=== PATIENT | male | born 1960 | race Two or more races ===

== ENCOUNTER 2023-06-15 10:16 | Emergency (ER) | payer MEDICAID, OTHER ==
[~2023-06-15] VITALS: Ht 167.6 cm; Wt 65.8 kg
[2023-06-15] MEDS ORDERED: ONDANSETRON HCL/PF 4 MG/2 ML VIAL ONE (10:34)
[2023-06-15 10:35] VITALS: TEMP 98
[2023-06-15] MEDS ORDERED: MORPHINE SULFATE INJ 2 MG/ML DISP.SYRIN ONE (10:35)
[2023-06-15] MEDS: ONDANSETRON HCL/PF - ER 4 MG/2 ML VIAL IV ONE (10:39)
[2023-06-15] MEDS: MORPHINE SULFATE INJ 2 MG/ML DISP.SYRIN IV ONE (10:39)
[2023-06-15 10:44] LABS: BASOPHILS % (AUTO) 0.3 % (0.0-2.0); EOSINOPHILS # (AUTO) 0.1 K/uL (0.0-0.7); EOSINOPHILS % (AUTO) 0.7 % (0.0-6.0); HEMATOCRIT 40 % (39-51); HEMOGLOBIN 12.6 g/dL (13.5-17.5); LYMPHOCYTES % (AUTO) 6.6 % (20.0-44.0); MEAN CORPUSCULAR HEMOGLOBIN 28 PG (26.0-33.0); MEAN CORPUSCULAR HGB CONC 32 g/dl (31.0-36.0); MEAN CORPUSCULAR VOLUME 89 fL (80-96); MONOCYTES # (AUTO) 1.1 K/uL (0.1-1.30); MONOCYTES % (AUTO) 7.4 % (2.0-12.0); NEUTROPHILS # (AUTO) 12.6 K/uL (1.8-8.9); PLATELET COUNT (AUTO) 581 K/uL (150-450); RED BLOOD CELL COUNT(AUTO) 4.46 MIL/uL (4.5-6.0); RED CELL DISTRIBUTION WIDTH 16.2 % (11.5-15.0); WHITE BLOOD COUNT (AUTO) 14.8 K/uL (4.3-11.0)
[2023-06-15 11:06] LABS: CALCIUM, SERUM 9.6 mg/dL (8.5-10.1); CARBON DIOXIDE 28 mmol/L (21-32); CHLORIDE 100 mmol/L (98-107); GLUCOSE 80 mg/dL (74-106); POTASSIUM 4.1 mmol/L (3.5-5.1); SODIUM SERUM 137 mmol/L (136-145); UREA NITROGEN, BLOOD 23 mg/dL (7-18)
[2023-06-15 11:12] LABS: ALANINE AMINOTRANSFERASE 23 U/L (12-78); ALBUMIN 3.8 g/dL (3.4-5.0); ALKALINE PHOSPHATASE 110 U/L (46-116); ASPARTATE AMINOTRANSFERASE 24 U/L (15-37); BILIRUBIN,DIRECT 0.1 mg/dL (0.0-0.2); BILIRUBIN,TOTAL 0.5 mg/dL (0.2-1.0); LIPASE 36 U/L (16-77); TOTAL PROTEIN, SERUM 8.3 g/dL (6.4-8.2)
[2023-06-15] MEDS: AMOX/CLAVULANATE 875 MG TABLET PO ONE (12:53)
[2023-06-15] MEDS ORDERED: AMOX/CLAVULANATE 875 MG TABLET ONE (12:53)
[2023-06-15] MEDS ORDERED: AMOX-430 PO (13:00)
[2023-06-15 13:47] VITALS: BP 121/64; O2SAT 98
== END 2023-06-15 14:47 | disposition home or self-care (01) ==
LOC: ER 10:24
DX: K52.9 Noninfective gastroenteritis and colitis, unspecified (principal)
CPT/HCPCS: 99285; 74176; 96374; 71045; 96375; 93005; 85025; 80048; 83690; 80076; 36415; 84484; J2405 ×2; J2270

== ENCOUNTER 2023-06-22 09:49 | Emergency (ER) | payer MEDICAID, OTHER ==
[~2023-06-22] VITALS: Ht 165.1 cm; Wt 49.9 kg
[~2023-06-22 09:49] MED LIST: AMOX-430 PO
[2023-06-22] MEDS ORDERED: AMOX-430 PO ×2 (10:12→17:17)
[2023-06-22] MEDS ORDERED: ONDA4TAB5 PO ×2 (10:12→17:17)
[2023-06-22 10:19] VITALS: BP 124/98; TEMP 98.5; O2SAT 100
[2023-06-22] MEDS ORDERED: ONDANSETRON 4 MG TAB.RAPDIS SL ONE (10:30)
[2023-06-22] MEDS ORDERED: AMOX/CLAVULANATE 875 MG TABLET PO ONE (10:30)
[2023-06-22] MEDS ORDERED: KETOROLAC TROMETHAMINE INJ 30 MG/ML VIAL IM ONE (10:30)
[2023-06-22] MEDS ORDERED: KETO10TA2 PO (17:17)
[2023-06-22] MEDS ORDERED: LOPE2CAP40 PO (17:17)
[2023-06-22] MEDS ORDERED: CYCL5TAB PO (17:17)
== END 2023-06-22 10:19 ==
LOC: ER 09:51
DX: K52.9 Noninfective gastroenteritis and colitis, unspecified (principal); R11.0 Nausea

== ENCOUNTER 2023-06-22 16:20 | Emergency (ER) | payer OTHER ==
[~2023-06-22] VITALS: Ht 165.1 cm; Wt 49.9 kg
[~2023-06-22 16:20] MED LIST changes: +ONDA4TAB5 PO
[2023-06-22 16:33] VITALS: TEMP 98.1
[2023-06-22] MEDS ORDERED: CYCLOBENZAPRINE 10 MG TABLET ONE (16:51)
[2023-06-22] MEDS ORDERED: KETOROLAC TROMETHAMINE INJ 30 MG/ML VIAL ONE (16:51)
[2023-06-22] MEDS ORDERED: methylPREDNISolone SOD SUCC 40 MG/ML VIAL ONE (16:51)
[2023-06-22] MEDS: CYCLOBENZAPRINE 10 MG TABLET PO ONE (16:57)
[2023-06-22] MEDS: KETOROLAC TROMETHAMINE INJ 60 MG/2 ML VIAL IM ONE (16:58)
[2023-06-22] MEDS: methylPREDNISolone SOD SUCC 40 MG/ML VIAL IM ONE (17:01)
[2023-06-22] MEDS ORDERED: KETO10TA2 PO (17:17)
[2023-06-22] MEDS ORDERED: CYCL5TAB PO (17:17)
[2023-06-22] MEDS ORDERED: ONDA4TAB5 PO (17:17)
[2023-06-22] MEDS ORDERED: AMOX-430 PO (17:17)
[2023-06-22] MEDS ORDERED: LOPE2CAP40 PO (17:17)
[2023-06-22 17:57] VITALS: BP 125/80; O2SAT 99
== END 2023-06-22 17:45 | disposition home or self-care (01) ==
LOC: ER 16:23
DX: M54.12 Radiculopathy, cervical region (principal); Z59.00 Homelessness unspecified; Z79.899 Other long term (current) drug therapy
CPT/HCPCS: 99284; 96372 ×2; 73030; J2920; J1885